=== PATIENT | female | born 1995 | race Caucasian/White ===

== ENCOUNTER → 2016-06-08 | Outpatient (CLI) | payer OTHER ==
[2016-06-08 18:48] LABS: FREE T4 0.94 NG/DL (0.78-1.33)
== END ==
LOC: M WUC 15:04
PROVIDERS: ATTEND Internal Medicine Endocrinology, Diabetes & Metabolism
DX: E06.3 Autoimmune thyroiditis (principal)

== ENCOUNTER → 2016-07-19 | Outpatient (CLI) | payer OTHER ==
[~2016-07-19] MED LIST: BUPIVACAINE HCL 0.5% 10 ML VIAL As Ordered ONE; CONRAY-43 43% 50ML VIAL (Q9960) As Ordered ONE; LIDOCAINE 1% MDV 20ML VIAL As Ordered ONE; methylPREDNISolone SUSP 40 MG/ML (DEPO-medrol) VIAL (J1030) As Ordered ONE
--- NOTE | 2016-07-19 16:50 | REP ---
RIGHT HIP INJECTION: The procedure was performed under the direct supervision of Dr. Douglas. The benefits and risks including, but not limited to pain, infection, bleeding, and anaphylaxis were explained to the patient and informed consent was obtained. The right femoral neck was localized using fluoroscopic guidance. The skin was prepped and draped in a sterile fashion. 1% lidocaine was used as a local anesthetic. Using fluoroscopic guidance a 22-gauge spinal needle was inserted and advanced to the femoral neck. 0.5 mL of Conray-43 was injected to verify placement. 7 mL of a solution containing 5 mL of 0.5% Marcaine and 2 mL of Depo-Medrol 40 mg was injected. The needle was then removed. The patient tolerated the procedure well and there were no immediate complications. 1 second of fluoroscopy time was utilized for this procedure. Reviewed by CHEYENNE Hurt 07/20/2016 09:30 AEdited and Signed by Kodak Douglas MD 07/20/2016 04:39 P
== END ==
LOC: M RADPRO 10:37
PROVIDERS: ATTEND Physician Assistant Surgical
DX: M25.551 Pain in right hip (principal); Z98.890 Other specified postprocedural states; M24.151 Other articular cartilage disorders, right hip; M24.851 Other specific joint derangements of right hip, not elsewhere classified
CPT/HCPCS: 20610; 77002; J1030; Q9960

== ENCOUNTER → 2016-11-05 | Outpatient (REF) | payer OTHER | LOC: M LAB REF 09:50 | PROVIDERS: ATTEND Physician Assistant | DX: N39.0 Urinary tract infection, site not specified (principal) ==

== ENCOUNTER → 2016-12-13 | Outpatient (REF) | payer OTHER | LOC: M LAB REF 12:47 | PROVIDERS: ATTEND Physician Assistant | DX: J02.9 Acute pharyngitis, unspecified (principal) ==

== ENCOUNTER → 2017-05-04 | Outpatient (CLI) | payer OTHER ==
--- NOTE | 2017-05-04 12:07 | REP ---
REASON: Elbow pain. FINDINGS: There is no acute fracture, dislocation, subluxation, or joint effusion. Signed by Jeremiah Verdin DO 05/04/2017 11:17 A
== END ==
LOC: M WUC 09:45
PROVIDERS: ATTEND Physician Assistant
DX: S50.01XA Contusion of right elbow, initial encounter (principal); X58.XXXA Exposure to other specified factors, initial encounter; Y92.89 Other specified places as the place of occurrence of the external cause; Y93.89 Activity, other specified; Y99.8 Other external cause status

== ENCOUNTER 2017-05-16 13:40 | Emergency (ER) | payer OTHER ==
[~2017-05-16] VITALS: Ht 175.3 cm; Wt 92.7 kg
[2017-05-16] MEDS ORDERED: [UNRECOGNIZED DRUG - OTHER] (13:47)
[2017-05-16] MEDS ORDERED: VENTAER (13:47)
[2017-05-16] MEDS ORDERED: NEXP1IMP SC (13:47)
[2017-05-16] MEDS ORDERED: KETOROLAC 30 MG/ML VIAL (J1885) IV ONE (14:15)
[2017-05-16 14:34] LABS: BASO % 0.4 % (0.0-1.0); EOS # 0.2 10^3/uL (0.0-0.50); EOS % 2.2 % (0.0-3.0); IMMATURE GRANULOCYTE % 0.3 % (0-0); LYMPH # 1.6 10^3/uL (1.5-6.5); LYMPH % 14.9 % (24.0-44.0); MEAN CORPUSCULAR HEMOGLOBIN 28.8 pg (27.0-33.0); MEAN CORPUSCULAR HGB CONC 33.2 g/dl (32.0-36.5); MEAN CORPUSCULAR VOLUME 86.9 fl (80.0-96.0); MONO # 0.6 10^3/uL (0.0-0.8); MONO % 5.5 % (0.0-5.0); NEUTROPHILS # 8.3 10^3/uL (1.8-7.7); NEUTROPHILS % 76.7 % (36.0-66.0); PLATELET COUNT, AUTOMATED 300 10^3/uL (150-450); RED CELL DISTRIBUTION WIDTH 11.9 % (11.5-14.5); WHITE BLOOD COUNT 10.9 10^3/uL (4.0-10.0)
[2017-05-16 15:03] LABS: ALBUMIN 4.3 GM/DL (3.2-5.2); ALBUMIN/GLOBULIN RATIO 1.23 (1.00-1.93); ALKALINE PHOSPHATASE 68 U/L (45-117); ALT/SGPT 20 U/L (12-78); ANION GAP 7 MEQ/L (8-16); AST/SGOT 10 U/L (7-37); BILIRUBIN,TOTAL 0.4 MG/DL (0.2-1.0); BLOOD UREA NITROGEN 11 MG/DL (7-18); CALCIUM LEVEL 8.7 MG/DL (8.5-10.1); CARBON DIOXIDE LEVEL 25 MEQ/L (21-32); CHLORIDE LEVEL 108 MEQ/L (98-107); GLOMERULAR FILTRATION RATE > 60.0 (>60); GLUCOSE, FASTING 100 MG/DL (70-105); POTASSIUM SERUM 3.9 MEQ/L (3.5-5.1); SODIUM LEVEL 140 MEQ/L (136-145); TOTAL PROTEIN 7.8 GM/DL (6.4-8.2)
[2017-05-16] MEDS ORDERED: ISOVUE-370 76% 100ML VIAL (Q9967) As Ordered ONE (15:14)
--- NOTE | 2017-05-16 16:18 | REP ---
PELVIC ULTRASOUND: Real-time sonographic evaluation of the pelvis was performed utilizing transabdominal and endovaginal technique. The bladder measures 3.3 x 3.8 x 4.5 cm. The uterus measures 7.6 x 3.0 x 3.2 cm. Endometrial thickness is 5 mm with no endometrial fluid collection. Ovaries appear normal in size and echotexture, right ovary measuring 2.5 x 2.6 x 1.7 cm and left ovary 3.4 x 1.9 x 2.5 cm. There is a dominant follicle in the left ovary 1.5 cm in diameter. There is no evidence of adnexal mass. No torsion is seen with blood flow seen in each ovary with duplex Doppler evaluation, RI right ovary 0.58 and left ovary 0.64. There is mild free fluid. IMPRESSION: No torsion or suspicious mass. Dominant follicle left ovary 1.5 cm. Mild free fluid. Signed by Nguyễn Alamo MD 05/16/2017 08:43 P
[2017-05-16 16:37] LABS: MICROSCOPIC INDICATED? MAN YES (NO)
--- NOTE | 2017-05-16 16:42 | REP ---
CT ABDOMEN AND PELVIS WITH IV CONTRAST: TECHNIQUE: Axial contrast enhanced images from the lung bases to the pubic symphysis using 100 mL Isovue 370 intravenous contrast material with multiplanar reformations. COMPARISON: 03/17/2013 Visualized ling bases demonstrates no evidence of infiltrate. Liver appears unremarkable. Patient has had a prior cholecystectomy. I do not see evidence of significant biliary dilatation. The spleen, adrenals, pancreas, and kidneys are unremarkable. There is no hydronephrosis. There is no abdominal aortic aneurysm. There is no adenopathy. There is no free air or free fluid. No bowel wall thickening is seen. There is no evidence of appendicitis. I see no pelvic mass. Urinary bladder is not well distended and not well evaluated. No anterior abdominal defect is seen. IMPRESSION: Status-post cholecystectomy. No acute abnormalities. No free air or free fluid. No evidence of appendicitis. Signed by Nguyễn Alamo MD 05/16/2017 08:43 P
[2017-05-16 17:11] LABS: RBC, URINE NONE SEEN /hpf (0-3); SQUAMOUS EPITHELIAL CELL URINE MOD AMOUNT /hpf (SMALL AMT)
[2017-05-16 17:12] LABS: BACTERIA, URINE MOD AMOUNT; HYALINE CAST, URINE NONE SEEN /lpf (0-1); MICROSCOPIC EXAM PERFORMED; TRANSITIONAL EPI CELLS, URINE SMALL AMOUNT /hpf
[2017-05-16 17:52] VITALS: BP 128/71
== END 2017-05-16 17:55 | disposition home or self-care (01) ==
LOC: M ED 13:40
DX: N83.02 Follicular cyst of left ovary (principal); R10.31 Right lower quadrant pain; J45.909 Unspecified asthma, uncomplicated; Z79.3 Long term (current) use of hormonal contraceptives; Z88.5 Allergy status to narcotic agent
CPT/HCPCS: 74177; 76830; 76856; 80053; 81000; 81025; 84702; 85025; 87086; 93976; 99284; Q9967

== ENCOUNTER → 2017-05-16 | Outpatient (REF) | payer OTHER ==
[~2017-05-16] MED LIST changes: -BUPIVACAINE HCL 0.5% 10 ML VIAL As Ordered ONE; -CONRAY-43 43% 50ML VIAL (Q9960) As Ordered ONE; -LIDOCAINE 1% MDV 20ML VIAL As Ordered ONE; +NEXP1IMP SC; +VENTAER; +[UNRECOGNIZED DRUG - OTHER]; -methylPREDNISolone SUSP 40 MG/ML (DEPO-medrol) VIAL (J1030) As Ordered ONE
== END ==
LOC: M LAB REF 16:14
PROVIDERS: ATTEND Physician Assistant
DX: R10.31 Right lower quadrant pain (principal)

== ENCOUNTER 2017-10-04 12:39 | Emergency (ER) | payer OTHER ==
[2017-10-04 13:37] LABS: BASO % 0.7 % (0.0-1.0); EOS # 0.3 10^3/uL (0.0-0.50); EOS % 4.6 % (0.0-3.0); HEMATOCRIT 36.7 % (36.0-47.0); HEMOGLOBIN 12.2 g/dl (12.0-15.5); IMMATURE GRANULOCYTE % 0.2 % (0-3.0); LYMPH # 2.1 10^3/uL (1.5-6.5); LYMPH % 33.6 % (24.0-44.0); MEAN CORPUSCULAR HEMOGLOBIN 28.3 pg (27.0-33.0); MEAN CORPUSCULAR HGB CONC 33.2 g/dl (32.0-36.5); MEAN CORPUSCULAR VOLUME 85.2 fl (80.0-96.0); MONO # 0.5 10^3/uL (0.0-0.8); MONO % 8.4 % (0.0-5.0); NEUTROPHILS # 3.2 10^3/uL (1.8-7.7); NEUTROPHILS % 52.5 % (36.0-66.0); PLATELET COUNT, AUTOMATED 219 10^3/uL (150-450); RED BLOOD COUNT 4.31 10^6/uL (4.00-5.40); RED CELL DISTRIBUTION WIDTH 11.9 % (11.5-14.5); WHITE BLOOD COUNT 6.1 10^3/uL (4.0-10.0)
[2017-10-04] MEDS: HYDROmorphone HCL 1 MG/ML SYRINGE (J1170) IV (13:39)
[2017-10-04 13:47] LABS: CONTROL LINE HCG INT CTR LINE PRESENT; HCG, SERUM QUALITATIVE NEGATIVE (NEGATIVE)
[2017-10-04 13:55] LABS: ALBUMIN 3.9 GM/DL (3.2-5.2); ALBUMIN/GLOBULIN RATIO 1.15 (1.00-1.93); ALKALINE PHOSPHATASE 64 U/L (45-117); ALT/SGPT 17 U/L (12-78); ANION GAP 4 MEQ/L (8-16); AST/SGOT 13 U/L (7-37); BILIRUBIN,DIRECT 0.1 MG/DL (0.0-0.2); BILIRUBIN,TOTAL 0.4 MG/DL (0.2-1.0); BLOOD UREA NITROGEN 12 MG/DL (7-18); CALCIUM LEVEL 8.7 MG/DL (8.5-10.1); CARBON DIOXIDE LEVEL 28 MEQ/L (21-32); CHLORIDE LEVEL 110 MEQ/L (98-107); CREATININE FOR GFR 0.92 MG/DL (0.55-1.30); GLOMERULAR FILTRATION RATE > 60.0 (>60); GLUCOSE, FASTING 74 MG/DL (70-100); POTASSIUM SERUM 3.8 MEQ/L (3.5-5.1); SODIUM LEVEL 142 MEQ/L (136-145); TOTAL PROTEIN 7.3 GM/DL (6.4-8.2)
[2017-10-04] MEDS: KETOROLAC 30 MG/ML VIAL (J1885) IV (14:52)
== END 2017-10-04 15:19 | disposition home or self-care (01) ==
LOC: M ED 12:39
DX: S73.101A Unspecified sprain of right hip, initial encounter (principal); X58.XXXA Exposure to other specified factors, initial encounter; Y92.89 Other specified places as the place of occurrence of the external cause; J45.909 Unspecified asthma, uncomplicated; E03.9 Hypothyroidism, unspecified; Z88.5 Allergy status to narcotic agent; Z79.899 Other long term (current) drug therapy
CPT/HCPCS: J1170

== ENCOUNTER → 2017-11-05 | Outpatient (CLI) | payer OTHER ==
[~2017-11-05] MED LIST changes: +CONRAY-43 43% 50ML VIAL (Q9960) As Ordered; +LIDOCAINE 1% MDV 20ML VIAL As Ordered; -NEXP1IMP SC; -VENTAER; -[UNRECOGNIZED DRUG - OTHER]; +methylPREDNISolone SUSP 40 MG/ML (DEPO-medrol) VIAL (J1030) As Ordered
== END ==
LOC: M RADPRO 10:39
DX: M25.551 Pain in right hip (principal); Z79.899 Other long term (current) drug therapy
CPT/HCPCS: 20610

== ENCOUNTER → 2018-03-03 | Outpatient (REF) | payer OTHER | LOC: M LAB REF 10:42 | DX: N39.0 Urinary tract infection, site not specified (principal) ==

== ENCOUNTER → 2018-03-12 | Outpatient (CLI) | payer OTHER ==
[2018-03-12 14:06] LABS: FREE T4 0.98 NG/DL (0.76-1.46)
[2018-03-12 14:06] LABS: TROPONIN I < 0.02 NG/ML (< 0.10)
[2018-03-12 14:38] LABS: D-DIMER QUANT < 270.0 ng/ml (<500)
== END ==
LOC: M SMT 09:26
DX: R06.00 Dyspnea, unspecified (principal)
CPT/HCPCS: 84443

== ENCOUNTER → 2019-07-01 | Outpatient (CLI) | payer OTHER ==
[~2019-07-01] MED LIST changes: -CONRAY-43 43% 50ML VIAL (Q9960) As Ordered; +IBUP-1114 PO; +LEVO100T5 PO; -LIDOCAINE 1% MDV 20ML VIAL As Ordered; +NEXP1IMP SC; +OXYC1TAB23 PO; +VENTAER; +[UNRECOGNIZED DRUG - OTHER]; -methylPREDNISolone SUSP 40 MG/ML (DEPO-medrol) VIAL (J1030) As Ordered
--- NOTE | 2019-07-02 15:30 | REP ---
Clinical: Anatomical evaluation. Comparison: None . Findings: Examination demonstrates a single live intrauterine in cephalic presentation. motion is identified by technologist. Placenta is noted the posterior and grade I without evidence for placenta previa or abruption. Amniotic fluid volume is normal. Cervix measures 3.1 cm in length and appears closed. No evidence for nuchal cord. Gestational age by current measurements 18 weeks 2 days with DARION 11/30/2019 . FHR equals 135 beats per minute. BPD 4.1 cm 18 weeks 3 days HC 15.2 cm 18 weeks 2 days AC 12.8 cm 18 weeks 3 days FL 2.8 cm 18 weeks 4 days HL 2.6 cm 18 weeks 2 days HC/AC ratio 1.19 Estimated weight 240 grams ( 52nd percentile). Anatomical assessment demonstrates normal structures including cranium, choroid plexus, cavum, cerebellum/posterior fossa, facial features, lungs, four-chamber heart/ventricular outflow tracts, diaphragm, stomach, cord insertion/three-vessel cord, kidneys/bladder, spine, and extremities. Impression: Single live intrauterine in cephalic presentation. Anatomical assessment is complete and normal. No gross abnormalities are identified. Electronically Signed by Herrera Jimenez MD 07/02/2019 03:22 P
== END ==
LOC: M WHC 08:44
PROVIDERS: ATTEND Advanced Practice Midwife
DX: Z34.02 Encounter for supervision of normal first pregnancy, second trimester (principal); Z3A.18 18 weeks gestation of pregnancy

== ENCOUNTER → 2019-07-15 | Outpatient (REF) | payer OTHER | LOC: M PLALAB 08:09 | PROVIDERS: ATTEND Obstetrics & Gynecology | DX: Z36.89 Encounter for other specified antenatal screening (principal) ==

== ENCOUNTER → 2019-08-11 | Outpatient (REF) | payer OTHER ==
[2019-08-11 18:06] LABS: HEMATOCRIT 38.9 % (36.0-47.0); HEMOGLOBIN 12.6 g/dl (12.0-15.5); MEAN CORPUSCULAR HEMOGLOBIN 29.6 pg (27.0-33.0); MEAN CORPUSCULAR HGB CONC 32.4 g/dl (32.0-36.5); MEAN CORPUSCULAR VOLUME 91.5 fl (80.0-96.0); PLATELET COUNT, AUTOMATED 231 10^3/uL (150-450); RED BLOOD COUNT 4.25 10^6/uL (4.00-5.40); WHITE BLOOD COUNT 9.3 10^3/uL (4.0-10.0)
== END ==
LOC: M PLALAB 11:55
PROVIDERS: ATTEND Obstetrics & Gynecology
DX: Z36.89 Encounter for other specified antenatal screening (principal); Z3A.00 Weeks of gestation of pregnancy not specified

== ENCOUNTER → 2019-09-10 | Outpatient (REF) | payer OTHER ==
[~2019-09-10] MED LIST changes: +ALBU83IN INH; +ARNU1INH INH; +CIPR-249 PO; +LEVO125T4; +LILL1TAB; +PRED10TA2 PO; +REGL10TA6 PO; +ZOFR4TAB16 PO
[2019-09-10 11:53] LABS: FREE T4 1.06 NG/DL (0.76-1.46); THYROID STIMULATING HORMONE 1.81 uIU/ML (0.358-3.740)
== END ==
LOC: M PLALAB 09:34
PROVIDERS: ATTEND Obstetrics & Gynecology
DX: Z34.01 Encounter for supervision of normal first pregnancy, first trimester (principal)

== ENCOUNTER → 2019-11-04 | Outpatient (REF) | payer OTHER | LOC: M SFHCWAGY 17:02 | PROVIDERS: ATTEND Obstetrics & Gynecology | DX: O99.213 Obesity complicating pregnancy, third trimester (principal) ==

== ENCOUNTER → 2019-11-05 | Outpatient (CLI) | payer OTHER | LOC: M LABSMTC 10:47 | PROVIDERS: ATTEND Pediatrics | DX: Z03.818 Encounter for observation for suspected exposure to other biological agents ruled out (principal); Z11.59 Encounter for screening for other viral diseases ==

== ENCOUNTER 2019-11-29 01:47 | Inpatient (IN) | payer OTHER ==
[~2019-11-29] VITALS: Ht 175.3 cm; Wt 106.5 kg
[2019-11-29] VITALS (25 sets, daily range): BP systolic 100–164; BP diastolic 55–97
[2019-11-29] MEDS ORDERED: LR 1,000 ML IV ONE ×2 (04:30)
[2019-11-29] MEDS ORDERED: PENICILLIN G POTASSIUM IV 5 MU in D5W MINI-BAG PLUS 100 ML IV STA (05:42)
[2019-11-29 05:49] LABS: HEMATOCRIT 37.3 % (36.0-47.0); HEMOGLOBIN 12.2 g/dl (12.0-15.5); MEAN CORPUSCULAR HEMOGLOBIN 29.2 pg (27.0-33.0); MEAN CORPUSCULAR HGB CONC 32.7 g/dl (32.0-36.5); MEAN CORPUSCULAR VOLUME 89.2 fl (80.0-96.0); PLATELET COUNT, AUTOMATED 234 10^3/uL (150-450); RED BLOOD COUNT 4.18 10^6/uL (4.00-5.40); WHITE BLOOD COUNT 12.2 10^3/uL (4.0-10.0)
[2019-11-29] MEDS ORDERED: PROMETHAZINE INJ 25 MG/ML VIAL (J2550) IV ONE (08:00)
[2019-11-29] MEDS ORDERED: BUTORPHANOL 2 MG/ML INJ (J0595) IV ONE ×2 (08:00→13:00)
--- NOTE | 2019-11-29 09:33 | HPE ---
DATE OF ADMISSION: 11/29/2019 23-year-old, 1, para 0 female at 39-5/7 weeks' gestation by a 7 week ultrasound, estimated date of confinement (EDC) of 12/01/2019, presents with contractions every 3-4 minutes for the last 3-4 hours. Contractions increased in intensity. She denies vaginal bleeding or loss of fluid. MEDICAL HISTORY: 1. Hypothyroidism. 2. Asthma. SURGICAL HISTORY: 1. Cholecystectomy. 2. Hip surgery. ALLERGIES: MORPHINE, REGLAN, NUCYNTA SOCIAL HISTORY: The patient lives in [place]. She is . She denies cigarettes, alcohol, or drug use. FAMILY HISTORY: Noncontributory. MEDICATIONS: - Synthroid 125 mcg daily - vitamins - ProAir PHYSICAL EXAMINATION: Blood pressure 138/81, pulse 67, afebrile. Appears comfortable. Head and neck: Exam normal. Lungs: Clear. Heart: Regular. Abdomen: Nontender, gravid, heart tones category 1, contractions every 4 minutes, moderate. Sterile vaginal exam: 3 cm, 100%, -2, mid-position, soft, vertex. Extremities: Nontender. LABORATORY DATA: Group B Streptococcus positive, A positive. ASSESSMENT: 23-year-old, 1 at 39-5/7 weeks' gestation presents in early labor. PLAN: Patient is admitted on 11/29/2019. Will administer Penicillin for group B Streptococcus prophylaxis.
[2019-11-29] MEDS: PENICILLIN G POTASSIUM IV 2.5 MU in IV 1 EA IV SCH ×2 (09:58→14:20)
[2019-11-29] MEDS ORDERED: PERCOCET 5MG/325MG TAB As Ordered ONE (11:09)
[2019-11-29] MEDS ORDERED: OXYTOCIN 30 UNITS IN 0.9% NaCl 500ML IV BAG (J2590) As Ordered ONE (11:11)
[2019-11-29] MEDS ORDERED: OXYTOCIN DRIP 30 UNITS in IV 1 EA IV SCH (11:15)
[2019-11-29] MEDS ORDERED: LR 1,000 ML IV SCH (11:30)
[2019-11-29] MEDS ORDERED: FENTANYL 2MCG/ML ROPIVACAINE 0.2% IN 0.9% NACL 100ML IVBAG As Ordered ONE (14:05)
[2019-11-29] MEDS: FENTANYL/ROPIVACAINE/NACL BAG 100 ML EPIDURAL SCH ×2 (14:31→19:34)
[2019-11-29] MEDS ORDERED: LIDOCAINE 1% MDV 20ML VIAL As Ordered ONE (16:11)
[2019-11-29] MEDS ORDERED: DIBUCAINE 1% OINTMENT 30GM TOP PRN (16:15)
[2019-11-29] MEDS ORDERED: IBUPROFEN 800 MG TAB PO PRN (16:15)
[2019-11-29] MEDS ORDERED: DOCUSATE SODIUM 100 MG CAP PO PRN (16:15)
[2019-11-29] MEDS ORDERED: OXYTOCIN DRIP 30 UNITS in IV 1 EA IV ONE (16:15)
[2019-11-29] MEDS ORDERED: LIDOCAINE 1% MDV 20ML VIAL INFIL ONE (16:15)
[2019-11-29] MEDS ORDERED: ACETAMINOPHEN 500 MG TAB PO PRN (16:15)
[2019-11-29] MEDS ORDERED: METHYLERGONOVINE MALEATE 0.2 MG TAB PO PRN (16:15)
[2019-11-29] MEDS ORDERED: ACETAMINOPHEN TAB 650MG DOSE (2X325MG) PO PRN (16:15)
[2019-11-29] MEDS ORDERED: IBUPROFEN 600MG TAB PO PRN (16:15)
[2019-11-29] MEDS ORDERED: ONDANSETRON 4MG/2ML VIAL IV PRN ×2 (16:15→17:30)
[2019-11-29] MEDS ORDERED: MEASLES,MUMPS,RUBELLA VACCINE INJ (MMR-II) (90707) SC SCH (16:15)
[2019-11-29] MEDS ORDERED: RHOGAM 300 MCG (1500 IU) INJ (J2790) IM SCH (16:15)
[2019-11-29] MEDS ORDERED: diphenhydrAMINE 50MG/ML VIAL (J1200) IV PRN (17:30)
[2019-11-29] MEDS ORDERED: EPIDURAL COMMENT XX SCH (17:30)
[2019-11-29] MEDS ORDERED: ePHEDrine SULFATE 25 MG/5 ML(5MG/ML) SYRINGE IV PRN (17:30)
[2019-11-29] MEDS ORDERED: EPIDURAL/PCA KEYS XX PRN (17:30)
[2019-11-29] MEDS ORDERED: REFRIGERATOR IV KEYS XX PRN (17:30)
[2019-11-29] MEDS ORDERED: LACTATED RINGER'S 1000 ML IV PRN (17:30)
[2019-11-29] MEDS ORDERED: NALOXONE INJ 0.4MG/1ML VIAL (J2310 PER 1MG) IV PRN (17:30)
[2019-11-29] MEDS: LEVOTHYROXINE 125MCG TABLET (0.125MG) PO SCH (21:59)
[2019-11-30 06:00] VITALS: BP 118/77
[2019-11-30] MEDS: PRENATAL VITAMINS CHEWABLE TABLET PO SCH (07:57)
[2019-11-30 17:31] VITALS: BP 126/79
[2019-11-30] MEDS: LEVOTHYROXINE 125MCG TABLET (0.125MG) PO SCH (20:44)
[2019-12-01] MEDS: FENTANYL/ROPIVACAINE/NACL BAG 100 ML EPIDURAL SCH (05:14)
[2019-12-01 06:00] VITALS: BP 118/69
[2019-12-01] MEDS: PRENATAL VITAMINS CHEWABLE TABLET PO SCH (08:21)
[2019-12-01] MEDS ORDERED: ACET-683 PO (10:38)
--- NOTE | 2019-12-08 15:57 | DN ---
DATE OF DELIVERY: 11/29/2019 PREDELIVERY DIAGNOSIS: 38-3/7 weeks gestation in labor. POSTDELIVERY DIAGNOSIS: Delivered. PROCEDURE: Spontaneous vaginal delivery. AMPOULE SEALER: Rajendra Beltran MD ANESTHESIA: Epidural. ESTIMATED BLOOD LOSS: 300 mL. FINDINGS: 6 pound 5 ounce male infant. scores 8 and 9. DELIVERY SUMMARY: After a 15 minute second stage of labor, the patient had spontaneous delivery of a 6 pound 5 ounce male , scores 8 and 9 under epidural anesthesia. There was no nuchal cord. The shoulders delivered with ease. The infant was handed to the mother. The cord was doubly clamped and cut. The placenta delivered spontaneously and appeared to be intact. The patient received IV Pitocin immediately after delivery of the placenta. A small second-degree perineal laceration and left periclitoral laceration were repaired under local anesthesia using chromic suture in the usual fashion. Sponge and needle counts were correct.
== END 2019-12-01 12:30 | disposition home or self-care (01) | DRG 807 ==
LOC: M LDO 01:47 → M LDI 05:29 → M OBS 17:58
PROVIDERS: ADMIT Specialist; ATTEND Specialist
PROC: 10E0XZZ Delivery of Products of Conception, External Approach (ICD-10-PCS; principal; 2019-11-29)
PROC: 0KQM0ZZ Repair Perineum Muscle, Open Approach (ICD-10-PCS; 2019-11-29)
DX: O99.284 Endocrine, nutritional and metabolic diseases complicating childbirth (principal); Z37.0 Single live birth; E03.9 Hypothyroidism, unspecified; O99.52 Diseases of the respiratory system complicating childbirth; J45.909 Unspecified asthma, uncomplicated; O99.824 Streptococcus B carrier state complicating childbirth; Z3A.39 39 weeks gestation of pregnancy; O70.1 Second degree perineal laceration during delivery

== ENCOUNTER → 2021-03-10 | Outpatient (REF) ==
[~2021-03-10] MED LIST changes: +ACET-683 PO
== END ==
LOC: M LABSMTC 10:18
PROVIDERS: ATTEND Family Medicine
DX: Z20.822 Contact with and (suspected) exposure to COVID-19 (principal)

== ENCOUNTER → 2021-04-07 | Outpatient (REF) ==
[2021-04-07 15:33] LABS: RSV AMPLIFICATION NEGATIVE (NEGATIVE)
== END ==
LOC: M EMP 14:41
PROVIDERS: ATTEND Family Medicine
DX: Z11.52 Encounter for screening for COVID-19 (principal); Z20.822 Contact with and (suspected) exposure to COVID-19

== ENCOUNTER → 2021-08-04 | Outpatient (REF) | LOC: M LABSMTC 10:08 | PROVIDERS: ATTEND Family Medicine | DX: Z20.822 Contact with and (suspected) exposure to COVID-19 (principal) ==

== ENCOUNTER → 2021-08-11 | Outpatient (CLI) | payer OTHER, BC ==
[2021-08-11 16:43] LABS: BASO # 0.1 10^3/uL (0.0-0.2); BASO % 0.5 % (0.0-1.0); EOS # 0.2 10^3/uL (0.0-0.5); EOS % 2.3 % (0.0-3.0); HEMATOCRIT 38.7 % (36.0-47.0); HEMOGLOBIN 12.9 g/dl (12.0-15.5); LYMPH # 2.2 10^3/uL (1.5-5.0); MEAN CORPUSCULAR HEMOGLOBIN 29.3 pg (27.0-33.0); MEAN CORPUSCULAR HGB CONC 33.3 g/dl (32.0-36.5); MEAN CORPUSCULAR VOLUME 87.8 fl (80.0-96.0); MONO # 0.6 10^3/uL (0.0-0.8); MONO % 6.2 % (2.0-8.0); NEUTROPHILS # 6.5 10^3/uL (1.5-8.5); NEUTROPHILS % 67.7 % (36.0-66.0); PLATELET COUNT, AUTOMATED 227 10^3/uL (150-450); RED BLOOD COUNT 4.41 10^6/uL (4.00-5.40); WHITE BLOOD COUNT 9.6 10^3/uL (4.0-10.0)
[2021-08-11 17:23] LABS: FREE T4 0.82 NG/DL (0.76-1.46)
[2021-08-11 18:05] LABS: HEPATITIS C VIRUS ABY INDEX 0.2 INDEX (<0.8); HIV 1&2 SCREEN CENTAUR NEGATIVE (NEGATIVE)
[2021-08-11 18:08] LABS: GC DNA AMPLIFICATION NEGATIVE (NEGATIVE)
== END ==
LOC: M WUC 10:59
PROVIDERS: ATTEND Advanced Practice Midwife
DX: Z34.91 Encounter for supervision of normal pregnancy, unspecified, first trimester (principal); Z3A.00 Weeks of gestation of pregnancy not specified

== ENCOUNTER 2021-08-28 07:10 | Emergency (ER) | payer BC, OTHER ==
[~2021-08-28] VITALS: Ht 175.3 cm; Wt 85.2 kg
[2021-08-28] MEDS ORDERED: LEVO137T2 (07:21)
[2021-08-28 08:17] LABS: BASO % 0.4 % (0.0-1.0); EOS # 0.3 10^3/uL (0.0-0.5); EOS % 3.1 % (0.0-3.0); HEMATOCRIT 39.3 % (36.0-47.0); HEMOGLOBIN 13.2 g/dl (12.0-15.5); LYMPH % 21.9 % (24.0-44.0); MEAN CORPUSCULAR HEMOGLOBIN 29.6 pg (27.0-33.0); MEAN CORPUSCULAR HGB CONC 33.6 g/dl (32.0-36.5); MEAN CORPUSCULAR VOLUME 88.1 fl (80.0-96.0); MONO # 0.6 10^3/uL (0.0-0.8); MONO % 5.9 % (2.0-8.0); NEUTROPHILS # 6.3 10^3/uL (1.5-8.5); NEUTROPHILS % 68.3 % (36.0-66.0); PLATELET COUNT, AUTOMATED 242 10^3/uL (150-450); RED BLOOD COUNT 4.46 10^6/uL (4.00-5.40); WHITE BLOOD COUNT 9.3 10^3/uL (4.0-10.0)
[2021-08-28 09:51] VITALS: BP 100/57
== END 2021-08-28 09:56 | disposition home or self-care (01) ==
LOC: M ED 07:10
DX: R10.2 Pelvic and perineal pain (principal); O99.512 Diseases of the respiratory system complicating pregnancy, second trimester; J45.909 Unspecified asthma, uncomplicated; O99.282 Endocrine, nutritional and metabolic diseases complicating pregnancy, second trimester; E07.9 Disorder of thyroid, unspecified; Z79.899 Other long term (current) drug therapy; Z79.890 Hormone replacement therapy; Z88.5 Allergy status to narcotic agent; Z88.8 Allergy status to other drugs, medicaments and biological substances; Z3A.15 15 weeks gestation of pregnancy

== ENCOUNTER → 2021-09-19 | Outpatient (CLI) | payer BC ==
[~2021-09-19] MED LIST changes: +LEVO137T2
== END ==
LOC: M WHC 08:00
PROVIDERS: ATTEND Specialist
DX: Z36.2 Encounter for other antenatal screening follow-up (principal); Z3A.19 19 weeks gestation of pregnancy

== ENCOUNTER → 2021-10-10 | Outpatient (REF) | payer BC | LOC: M PLALAB 10:25 | PROVIDERS: ATTEND Advanced Practice Midwife | DX: Z34.92 Encounter for supervision of normal pregnancy, unspecified, second trimester (principal) ==

== ENCOUNTER → 2021-11-07 | Outpatient (CLI) | payer BC ==
[~2021-11-07] MED LIST changes: +ALBU2.5V10 INH; -ALBU83IN INH
== END ==
LOC: M WHC 12:01
PROVIDERS: ATTEND Advanced Practice Midwife
DX: Z34.92 Encounter for supervision of normal pregnancy, unspecified, second trimester (principal); Z3A.26 26 weeks gestation of pregnancy

== ENCOUNTER → 2021-11-21 | Outpatient (CLI) | payer BC ==
[2021-11-21 13:41] LABS: HEMATOCRIT 37.3 % (36.0-47.0); HEMOGLOBIN 12.1 g/dl (12.0-15.5); MEAN CORPUSCULAR HEMOGLOBIN 29.8 pg (27.0-33.0); MEAN CORPUSCULAR HGB CONC 32.4 g/dl (32.0-36.5); MEAN CORPUSCULAR VOLUME 91.9 fl (80.0-96.0); PLATELET COUNT, AUTOMATED 219 10^3/uL (150-450); RED BLOOD COUNT 4.06 10^6/uL (4.00-5.40); WHITE BLOOD COUNT 9.4 10^3/uL (4.0-10.0)
[2021-11-21 14:23] LABS: FREE T4 0.84 NG/DL (0.76-1.46); THYROID STIMULATING HORMONE 4.16 uIU/ML (0.358-3.740)
== END ==
LOC: M PLALAB 10:33
PROVIDERS: ATTEND Advanced Practice Midwife
DX: Z34.92 Encounter for supervision of normal pregnancy, unspecified, second trimester (principal)

== ENCOUNTER → 2022-01-11 | Outpatient (CLI) | payer BC ==
[~2022-01-11] MED LIST changes: +ETON68IM SC; -NEXP1IMP SC
[2022-01-11 14:44] LABS: FREE T4 0.94 NG/DL (0.76-1.46); THYROID STIMULATING HORMONE 1.03 uIU/ML (0.358-3.740)
== END ==
LOC: M PLALAB 09:51
PROVIDERS: ATTEND Obstetrics & Gynecology
DX: E03.9 Hypothyroidism, unspecified (principal)

== ENCOUNTER → 2022-01-11 | Outpatient (REF) | payer BC | LOC: M PLALAB 09:06 | PROVIDERS: ATTEND Obstetrics & Gynecology | DX: Z34.93 Encounter for supervision of normal pregnancy, unspecified, third trimester (principal) ==

== ENCOUNTER → 2022-01-11 | Outpatient (CLI) | payer BC | LOC: M PLALAB 09:49 | PROVIDERS: ATTEND Advanced Practice Midwife | DX: Z36.89 Encounter for other specified antenatal screening (principal) ==

== ENCOUNTER → 2022-12-11 | Outpatient (CLI) | payer BC ==
[~2022-12-11] MED LIST changes: +LEVO137T2 PO; +PRENTAB9 PO
[2022-12-11 18:47] LABS: HEMATOCRIT 37.4 % (36.0-47.0); HEMOGLOBIN 12.2 g/dl (12.0-15.5); MEAN CORPUSCULAR HGB CONC 32.6 g/dl (32.0-36.5); PLATELET COUNT, AUTOMATED 244 10^3/uL (150-450); WHITE BLOOD COUNT 8.7 10^3/uL (4.0-10.0)
[2022-12-11 19:06] LABS: FREE T4 0.75 NG/DL (0.89-1.76); THYROID STIMULATING HORMONE 6.775 uIU/ML (0.55-4.78)
[2022-12-11 19:37] LABS: HIV 1&2 SCREEN NEGATIVE (NEGATIVE)
[2022-12-11 22:26] LABS: GC DNA AMPLIFICATION NEGATIVE (NEGATIVE)
== END ==
LOC: M PLALAB 14:35
PROVIDERS: ATTEND Advanced Practice Midwife
DX: Z34.91 Encounter for supervision of normal pregnancy, unspecified, first trimester (principal)

== ENCOUNTER → 2023-02-14 | Outpatient (CLI) | payer BC | LOC: M WHC 09:04 | PROVIDERS: ATTEND Obstetrics & Gynecology | DX: Z34.92 Encounter for supervision of normal pregnancy, unspecified, second trimester (principal); Z3A.19 19 weeks gestation of pregnancy; G93.0 Cerebral cysts ==

== ENCOUNTER 2023-03-18 17:03 | Emergency (ER) | payer OTHER, BC ==
[~2023-03-18] VITALS: Ht 175.3 cm; Wt 84.0 kg
[2023-03-18 17:08] VITALS: BP 125/68; TEMP 97.7; O2SAT 98
[2023-03-18] MEDS ORDERED: EPIP0.3I2 IM (17:18)
== END 2023-03-18 17:55 | disposition home or self-care (01) ==
LOC: M ED 17:03
DX: S80.01XA Contusion of right knee, initial encounter (principal); S80.02XA Contusion of left knee, initial encounter; Y04.2XXA Assault by strike against or bumped into by another person, initial encounter; Z3A.24 24 weeks gestation of pregnancy; Y99.0 Civilian activity done for income or pay; J45.909 Unspecified asthma, uncomplicated; E03.9 Hypothyroidism, unspecified; Z79.899 Other long term (current) drug therapy; Z88.5 Allergy status to narcotic agent; Z88.8 Allergy status to other drugs, medicaments and biological substances; Z79.51 Long term (current) use of inhaled steroids; Z79.890 Hormone replacement therapy

== ENCOUNTER 2023-05-22 08:53 | Outpatient (CLI) | payer OTHER, BC ==
[~2023-05-22] VITALS: Ht 175.3 cm; Wt 93.6 kg
[~2023-05-22 08:53] MED LIST changes: +EPIP0.3I2 IM
[2023-05-22 08:58] VITALS: BP 113/57
[2023-05-22] MEDS ORDERED: HOME MED LIST COMPLETE! XX SCH (09:10)
[2023-05-22 10:00] LABS: HEMATOCRIT 33.7 % (36.0-47.0); MEAN CORPUSCULAR HEMOGLOBIN 29.3 pg (27.0-33.0); MEAN CORPUSCULAR HGB CONC 32.6 g/dl (32.0-36.5); MEAN CORPUSCULAR VOLUME 89.9 fl (80.0-96.0); PLATELET COUNT, AUTOMATED 216 10^3/uL (150-450); RED BLOOD COUNT 3.75 10^6/uL (4.00-5.40); WHITE BLOOD COUNT 7.8 10^3/uL (4.0-10.0)
[2023-05-22 10:32] LABS: LIPASE 35 U/L (12-53)
[2023-05-22 10:35] LABS: ALBUMIN 2.5 G/DL (3.2-5.2); ALKALINE PHOSPHATASE 81 U/L (46-116); ALT/SGPT 10 U/L (7.0-40); AMYLASE 66 U/L (30-118); AST/SGOT 9 U/L (<34); BILIRUBIN,DIRECT < 0.1 MG/DL (<0.4); BILIRUBIN,TOTAL 0.3 MG/DL (0.3-1.2); TOTAL PROTEIN 5.3 G/DL (5.7-8.2)
[2023-05-22 11:00] VITALS: BP 128/57
== END 2023-05-22 12:40 | disposition home or self-care (01) ==
LOC: M LDO 08:53
PROVIDERS: ATTEND Advanced Practice Midwife
DX: O26.893 Other specified pregnancy related conditions, third trimester (principal); R10.30 Lower abdominal pain, unspecified; Z3A.33 33 weeks gestation of pregnancy; O99.283 Endocrine, nutritional and metabolic diseases complicating pregnancy, third trimester; E03.9 Hypothyroidism, unspecified; O99.513 Diseases of the respiratory system complicating pregnancy, third trimester; J45.909 Unspecified asthma, uncomplicated; Z88.5 Allergy status to narcotic agent; Z88.1 Allergy status to other antibiotic agents; Z88.8 Allergy status to other drugs, medicaments and biological substances
CPT/HCPCS: 36415; 59025; 76775; 76815; 80076; 82150; 83690; 85027; G0463

== ENCOUNTER → 2023-06-07 | Outpatient (CLI) | payer BC | LOC: M PLALAB 14:09 | PROVIDERS: ATTEND Obstetrics & Gynecology | DX: O99.713 Diseases of the skin and subcutaneous tissue complicating pregnancy, third trimester (principal); Z3A.00 Weeks of gestation of pregnancy not specified ==

== ENCOUNTER → 2023-06-07 | Outpatient (CLI) | payer BC ==
[2023-06-07 16:01] LABS: FREE T4 0.8 NG/DL (0.89-1.76)
[2023-06-07 16:03] LABS: THYROID STIMULATING HORMONE 4.86 uIU/ML (0.55-4.78)
== END ==
LOC: M PLALAB 14:16
PROVIDERS: ATTEND Advanced Practice Midwife
DX: O99.280 Endocrine, nutritional and metabolic diseases complicating pregnancy, unspecified trimester (principal); Z3A.00 Weeks of gestation of pregnancy not specified

== ENCOUNTER → 2023-06-13 | Outpatient (REF) | payer BC | LOC: M PLALAB 15:05 | PROVIDERS: ATTEND Obstetrics & Gynecology | DX: Z33.1 Pregnant state, incidental (principal) ==

== ENCOUNTER 2023-07-13 17:26 | Inpatient (IN) | payer BC ==
[~2023-07-13] VITALS: Ht 175.3 cm; Wt 101.7 kg
[2023-07-13] MEDS ORDERED: HOME MED LIST COMPLETE! XX SCH (17:40)
[2023-07-13 17:44] VITALS: BP 123/79
[2023-07-13 18:10] LABS: HEMATOCRIT 36.1 % (36.0-47.0); MEAN CORPUSCULAR HEMOGLOBIN 29.3 pg (27.0-33.0); MEAN CORPUSCULAR HGB CONC 33.2 g/dl (32.0-36.5); MEAN CORPUSCULAR VOLUME 88.3 fl (80.0-96.0); PLATELET COUNT, AUTOMATED 227 10^3/uL (150-450); RED BLOOD COUNT 4.09 10^6/uL (4.00-5.40); WHITE BLOOD COUNT 9.4 10^3/uL (4.0-10.0)
[2023-07-13] MEDS ORDERED: OXYTOCIN DRIP 30 UNITS in IV 1 EA IV PRN (18:10)
[2023-07-13] MEDS ORDERED: LIDOCAINE 1% MDV 20ML VIAL INFIL PRN (18:10)
[2023-07-13 18:52] VITALS: BP 132/68
[2023-07-13] MEDS ORDERED: LR 500 ML IV PRN (18:55)
[2023-07-13] MEDS ORDERED: NALOXONE INJ 0.4MG/1ML VIAL IV PRN (18:55)
[2023-07-13] MEDS ORDERED: FENTANYL/ROPIVACAINE/NACL BAG 100 ML EPIDURAL SCH (18:55)
[2023-07-13] MEDS ORDERED: ePHEDrine SULFATE 25 MG/5 ML(5MG/ML) SYRINGE IVP PRN (18:55)
[2023-07-13] MEDS ORDERED: EPIDURAL/PCA KEYS XX PRN (18:55)
[2023-07-13] MEDS ORDERED: ONDANSETRON 4MG 2ML VIAL IV PRN (18:55)
[2023-07-13] MEDS ORDERED: diphenhydrAMINE 50MG/ML VIAL IV PRN (18:55)
[2023-07-13] MEDS ORDERED: OXYTOCIN DRIP 30 UNITS in IV 1 EA IV SCH (19:05)
[2023-07-13] MEDS: FENTANYL/ROPIVACAINE/NACL BAG 100 ML EPIDURAL SCH (19:22)
[2023-07-13 21:13] LABS: CORD GAS ABE A -3.6; CORD GAS ABE V -1.6; CORD GAS HCO3 A 21.9 MMOL/L; CORD GAS O2 SAT A 67.4 %; CORD GAS O2 SAT V 76.7 %; CORD GAS PCO2 A 41.3 mmHg; CORD GAS PH A 7.343 UNITS; CORD GAS PH V 7.389 UNITS; CORD GAS PO2 V 33.1 mmHg; CORD GAS SBC A 20.8 MMOL/L; CORD GAS SBC V 22.6 MMOL/L; CORD GAS TCO2 A 23.2 MMOL/L; CORD GAS TCO2 V 24.2 MMOL/L
[2023-07-13] MEDS ORDERED: DIBUCAINE 1% OINTMENT 30GM TOP PRN (21:25)
[2023-07-13] MEDS: OXYTOCIN DRIP 30 UNITS in IV 1 EA IV SCH (21:25)
[2023-07-13] MEDS ORDERED: RHOGAM 300MCG (1500IU) INJ IM SCH (21:25)
[2023-07-13] MEDS ORDERED: METHYLERGONOVINE MALEATE 0.2 MG TAB PO PRN (21:25)
[2023-07-13] MEDS ORDERED: IBUPROFEN 800 MG TAB PO PRN (21:25)
[2023-07-13] MEDS ORDERED: IBUPROFEN 600MG TAB PO PRN (21:25)
[2023-07-13] MEDS ORDERED: ACETAMINOPHEN TAB 650MG DOSE (2X325MG) PO PRN (21:25)
[2023-07-14] VITALS: BP 119/69; O2SAT 98
[2023-07-14 06:00] VITALS: BP 119/73; O2SAT 100
[2023-07-14] MEDS: PRENATAL VITAMINS CHEWABLE TABLET PO SCH (07:41)
[2023-07-14] MEDS: ACETAMINOPHEN 500 MG TAB PO PRN (17:56)
[2023-07-14] MEDS: DOCUSATE SODIUM 100MG CAPSULE PO PRN (17:56)
[2023-07-14 18:00] VITALS: BP 123/67; O2SAT 98
[2023-07-15 06:00] VITALS: BP 113/68; O2SAT 98
[2023-07-15] MEDS: MEASLES,MUMPS,RUBELLA VACCINE INJ (MMR-II) SC.IMMUN ONE (09:00)
== END 2023-07-15 14:48 | disposition home or self-care (01) | DRG 560 ==
LOC: M LDO 17:26 → M LDI 17:52 → M OBS 07-14
PROVIDERS: ADMIT Obstetrics & Gynecology; ATTEND Obstetrics & Gynecology
PROC: 10E0XZZ Delivery of Products of Conception, External Approach (ICD-10-PCS; principal; 2023-07-13)
DX: O69.81X0 Labor and delivery complicated by cord around neck, without compression, not applicable or unspecified (principal); Z37.0 Single live birth; Z3A.40 40 weeks gestation of pregnancy

== ENCOUNTER 2023-12-30 19:17 | Emergency (ER) | payer OTHER, BC ==
[~2023-12-30] VITALS: Ht 175.3 cm; Wt 88.3 kg
[2023-12-30 19:17] VITALS: BP 124/82; TEMP 98.4; O2SAT 98
== END 2023-12-30 20:23 | disposition home or self-care (01) ==
LOC: M ED 19:17
DX: S63.501A Unspecified sprain of right wrist, initial encounter (principal); X58.XXXA Exposure to other specified factors, initial encounter; Y92.9 Unspecified place or not applicable; Y93.9 Activity, unspecified; Y99.0 Civilian activity done for income or pay; E03.9 Hypothyroidism, unspecified; Z79.899 Other long term (current) drug therapy; Z88.5 Allergy status to narcotic agent; Z88.3 Allergy status to other anti-infective agents; Z88.8 Allergy status to other drugs, medicaments and biological substances

== ENCOUNTER 2024-08-31 14:16 | Emergency (ER) | payer OTHER, BC ==
[~2024-08-31] VITALS: Ht 175.3 cm; Wt 75.0 kg
[2024-08-31] MEDS ORDERED: PHEN-239 (14:55)
[2024-08-31] MEDS ORDERED: EPIN0.3I11 (14:55)
[2024-08-31 17:40] VITALS: BP 109/69; TEMP 97.2; O2SAT 100
== END 2024-08-31 17:43 | disposition home or self-care (01) ==
LOC: M ED 14:16
DX: S86.112A Strain of other muscle(s) and tendon(s) of posterior muscle group at lower leg level, left leg, initial encounter (principal); X50.1XXA Overexertion from prolonged static or awkward postures, initial encounter; Y93.01 Activity, walking, marching and hiking; Y92.239 Unspecified place in hospital as the place of occurrence of the external cause; Y99.0 Civilian activity done for income or pay; Z88.5 Allergy status to narcotic agent; Z88.8 Allergy status to other drugs, medicaments and biological substances

== ENCOUNTER → 2024-09-08 | Outpatient (CLI) | payer OTHER, BC ==
[~2024-09-08] MED LIST changes: +EPIN0.3I11; +PHEN-239
== END ==
LOC: M RAD 08:00
PROVIDERS: ATTEND Student in an Organized Health Care Education/Training Program
DX: M76.62 Achilles tendinitis, left leg (principal)

== ENCOUNTER → 2025-04-14 | Outpatient (CLI) | payer BC ==
[~2025-04-14] MED LIST changes: -PHEN-239; +PHEN37.511
[2025-04-14 12:10] LABS: BASO # 0.1 10^3/uL (0.0-0.2); BASO % 0.9 % (0.0-1.0); EOS # 0.4 10^3/uL (0.0-0.5); EOS % 5.4 % (0.0-3.0); LYMPH # 2.0 10^3/uL (1.5-5.0); LYMPH % 28.4 % (24.0-44.0); MONO # 0.5 10^3/uL (0.0-0.8); MONO % 6.8 % (2.0-8.0); NEUTROPHILS # 4.0 10^3/uL (1.5-8.5); NEUTROPHILS % 58.4 % (36.0-66.0); PLATELET COUNT, AUTOMATED 278 10^3/uL (150-450)
[2025-04-14 12:36] LABS: ALT/SGPT 24 U/L (7.0-40); AST/SGOT 17 U/L (<34); CALCIUM LEVEL 9.1 MG/DL (8.5-10.1); CARBON DIOXIDE LEVEL 25 MMOL/L (20-31); CHLORIDE LEVEL 107 MMOL/L (98-107); CREATININE FOR GFR 0.73 MG/DL (0.55-1.30); GLOMERULAR FILTRATION RATE > 90.0 (>60); POTASSIUM SERUM 4.7 MMOL/L (3.5-5.1); SODIUM LEVEL 140 MMOL/L (136-145)
[2025-04-14 12:39] LABS: FREE T4 0.96 NG/DL (0.89-1.76)
== END ==
LOC: M LAB 11:39
PROVIDERS: ATTEND Physician Assistant
DX: E06.3 Autoimmune thyroiditis (principal)